=== PATIENT | female | born 1985 | race Caucasian/White ===

== ENCOUNTER 2018-05-18 01:10 | Emergency (ER) | payer OTHER ==
[~2018-05-18] VITALS: Ht 165.1 cm; Wt 90.2 kg
[2018-05-18 02:38] LABS: HEMATOCRIT 43.5 % (36.0-46.0); HEMOGLOBIN 14.9 G/DL (11.9-15.5); MCH 29.9 PG (29.0-34.0); MCHC 34.3 G/DL (30.0-36.0); MCV 87.3 FL (83-99); PLATELET COUNT 337 K/uL (156-360); RBC DIS.WIDTH-CV 12.3 % (11.8-14.6); RBC DIS.WIDTH-SD 39.2 % (39-53); RED BLOOD COUNT 4.98 M/uL (3.80-5.20); WHITE BLOOD COUNT 10.4 K/uL (4.1-10.2)
[2018-05-18 03:00] LABS: AMPHETAMINE NEGATIVE (500 ng/mL); BARBITURATES NEGATIVE (200 ng/mL); BENZODIAZEPINES NEGATIVE (150 ng/mL); BUPRENORPHINE NEGATIVE (10 ng/mL); COCAINE NEGATIVE (150 ng/mL); METHADONE NEGATIVE (200 ng/mL); METHAMPHETAMINE NEGATIVE (500 ng/mL); OPIATES (MORPHINE) NEGATIVE (100 ng/mL); OXYCODONE NEGATIVE (100 ng/mL); PHENCYCLIDINE NEGATIVE (25 ng/mL); PROPOXYPHENE NEGATIVE (300 ng/mL); THC CANNABINOIDS NEGATIVE (50 ng/mL); TRICYCLIC ANTIDEPRESSANTS PRESUMPTIVE POSITIVE (300 ng/mL)
[2018-05-18 03:55] LABS: ALBUMIN 4.6 g/dL (3.2-4.8); CHLORIDE 108 mEq/L (99-109); POTASSIUM 3.7 mEq/L (3.7-5.4); SODIUM 143 mEq/L (136-147)
[2018-05-18 03:57] LABS: GLUCOSE 105 mg/dL (70-99); TOTAL PROTEIN 7.7 g/dL (6.4-8.3)
[2018-05-18 03:59] LABS: TOTAL BILIRUBIN 0.4 mg/dL (0.0-1.0)
[2018-05-18 04:00] LABS: SERUM ETHYL ALCOHOL < 10 mg/dL
[2018-05-18 04:01] LABS: ALKALINE PHOSPHATASE 75 IU/L (3-129); GFR ESTIMATE (CALCULATED) > 59 mL/min/
[2018-05-18 04:02] LABS: AST (GOT) 24 IU/L (2-34); UREA NITROGEN (BUN) 14 mg/dL (9-23)
[2018-05-18 04:04] LABS: ALT (GPT) 29 IU/L (3-49)
[2018-05-18] MEDS ORDERED: ATIVAN2 MG PO (04:19)
[2018-05-18 04:38] VITALS: BP 150/99
[2018-05-18 08:30] LABS: THYROTROPIN (TSH) 4.3 MIU/L (0.4-5.5)
== END 2018-05-18 04:38 | disposition home or self-care (01) ==
LOC: EME 01:10
PROVIDERS: Emergency Medicine
DX: F25.0 Schizoaffective disorder, bipolar type (principal); F22 Delusional disorders; F41.1 Generalized anxiety disorder; F70 Mild intellectual disabilities; E78.5 Hyperlipidemia, unspecified; Z88.0 Allergy status to penicillin
CPT/HCPCS: 80053; 81025; 84443; 85027; 90837; 99281; 99285; G0480; J2060